=== PATIENT | male | born 1965 | race Caucasian/White ===

== ENCOUNTER → 2017-10-29 | Outpatient (CLI) | payer BC ==
--- NOTE | 2017-10-29 08:59 | MR ---
EXAMINATION TYPE: MR lumbar spine wo con DATE OF EXAM: 10/29/2017 COMPARISON: NONE HISTORY: Degenerative disc disease(M51.36 per order). Back pain for 7 years going into bilateral butt ocks. TECHNIQUE: Multiplanar, multisequence imaging of the lumbar spine is performed without IV contrast. FINDINGS: Sagittal images of the lumbar spine show vertebral body heights to appear satisfactory. The re is subtle grade 1 retrolisthesis of L4 on L5 and L5 on S1 seen best sagittal image 6. There is dis c desiccation L3-L4 through the L5-S1 levels. Mild disc space narrowing T12-L1 and L5-S1 levels are p resent. Small posterior disc herniations L4-L5 and L5-S1 levels are seen on sagittal images, annular tears are noted at these levels with increased posterior signal The conus medullaris is normal in po sition and signal ending superior L1 level. Modic type II degenerative change anterior inferior T12 e ndplate is present. Mild anterior spurring at this level is noted. Axial images at the T12-L1 level show mild broad disc bulge minimally effacing anterior thecal sac. B ilateral neural foramina are patent. Axial images at the L1-L2 and the L2-L3 levels are felt within normal limits. Axial images at the L3-L4 level shows mild to moderate broad disc bulge with right lateral disc protr usion component. There is mild effacement of the anterior thecal sac. There is mild to moderate right -sided anterior inferior neural foraminal narrowing with suspected encroachment along the extraforami nal right L3 nerve seen sagittal image 11 and axial image 13. Mild bilateral facet degenerative brasher es are present. Axial images at the L4-L5 level shows mild facet degenerative changes bilaterally. There is broad dis c bulge with left lateral disc protrusion component. There is effacement of the anterior thecal sac. Right-sided neural foramina is patent. Left side shows mild to moderate inferior anterior narrowing. Axial images at the L5-S1 level show broad disc bulge and mild facet degenerative changes bilaterally . There is mild left and mild to moderate right-sided inferior neural foraminal narrowing. Paraspinal muscle bulk is maintained. Gallbladder has distended margins without visualization of depe ndent gallstones. There is nonspecific 1.6 x 1.2 cm left adrenal mass axial image 30. IMPRESSION: Multilevel degenerative changes in the lumbar spine as detailed above most prominent in l ower lumbar levels. Nonspecific 1.6 cm left adrenal lesion may warrant further workup with adrenal pr otocol contrast-enhanced CT or MRI to rule out malignancy in etiology if there is no outside CT or MR I for comparison to document stability.
== END | disposition home or self-care (01) ==
LOC: RADMRIMAIN 06:57
PROVIDERS: ATTEND Family Medicine
DX: M47.816 Spondylosis without myelopathy or radiculopathy, lumbar region (principal)
CPT/HCPCS: 72148

== ENCOUNTER → 2019-06-02 | Day surgery (SDC) | payer BC ==
[2019-05-28 16:04] VITALS: BMI 28.8
[~2019-06-02] MED LIST: LACTATED RINGERS 1,000 ML IV ONE; LACTATED RINGERS 1,000 ML IV SCH; LIDOCAINE 1% (10MG/ML) FOR IV START INTRADERMA ONE; LIDOCAINE 1% INJ 10MG/ML (20 ML MDV) ONE; PROPOFOL 10 MG/ML 20 ML VIAL IV ONE
[2019-06-02 07:08] VITALS: RESP 18; TEMP 97.8
--- NOTE | 2019-06-02 07:58 | P.GSHP ---
History of Present Illness H&P Date: 06/02/19 Chief Complaint: Family history colonic Cancer, screening colonoscopy This a 53-year-old male presents today for colonoscopy. Patient has a strong family history colonic Cancer. Past Medical History Past Medical History: COPD, Osteoarthritis (OA) Additional Past Medical History / Comment(s): BACK & HIP PAIN, HX COLON POLYPS. History of Any Multi-Drug Resistant Organisms: None Reported Past Surgical History: No Surgical Hx Reported Additional Past Surgical History / Comment(s): COLONOSCOPY Past Anesthesia/Blood Transfusion Reactions: No Reported Reaction Past Psychological History: No Psychological Hx Reported Smoking Status: Heavy tobacco smoker Past Alcohol Use History: Daily Additional Past Alcohol Use History / Comment(s): SMOKES 1-2 PPD, STARTED SMOKING AGE 12. DRINKS 6-8 BEERS/DAY Past Drug Use History: None Reported Additional Drug Use History / Comment(s): CBD OIL - Past Family History Mother Family Medical History: Cancer Additional Family Medical History / Comment(s): LEUKEMIA, & BREAST CANCER Father Family Medical History: No Reported History Brother(s) Family Medical History: Cancer Additional Family Medical History / Comment(s): COLON CANCER Sister(s) Family Medical History: Cancer Additional Family Medical History / Comment(s): LEUKEMIA & LUNG CANCER Medications and Allergies Home Medications Medication Instructions Recorded Confirmed Type Cannabidiol (Cbd) Extract 1 dose PO DIRECTED PRN 05/28/19 05/28/19 History [Epidiolex] HYDROcodone/APAP 10-325MG [Piercy 1 tab PO Q4HR PRN 05/28/19 05/28/19 History 10-325] Inhaler (Unknown Name) 1 puff INHALATION DIRECTED PRN 05/28/19 History Simvastatin 40 mg PO DAILY 05/28/19 05/28/19 History Allergies Allergy/AdvReac Type Severity Reaction Status Date / Time No Known Allergies Allergy Verified 05/28/19 15:39 Surgical - Exam Vital Signs Temp Pulse Resp BP Pulse Ox 97.8 F 77 18 147/85 99 06/02/19 07:07 06/02/19 07:07 06/02/19 07:07 06/02/19 07:07 06/02/19 07:07 - General well developed, well nourished, no distress - Eyes PERRL - ENT normal pinna - Neck no masses - Respiratory normal expansion - Cardiovascular Rhythm: regular - Abdomen Abdomen: soft, non tender Assessment and Plan Plan: Family History of colonic cancer. We'll perform colonoscopy.
--- NOTE | 2019-06-02 08:20 | P.OP ---
Date of Procedure: 06/02/19 Preoperative Diagnosis: Family history of colonic Cancer Postoperative Diagnosis: Diverticulosis Procedure(s) Performed: Colonoscopy Anesthesia: MAC Surgeon: Robin Swift Pathology: none sent Condition: stable Disposition: PACU Description of Procedure: The patient's placed on the endoscopy table in the lateral position. He received IV sedation. Digital rectal exam was performed which revealed a few external hemorrhoids. The flexible colonoscope was then placed patient anus passed rotator entire colon. The ileocecal valve was visualized. The cecum appeared normal. In the ascending, transverse and descending colon there is moderate diverticular changes. The scope was then brought back the sigmoid colon and once again there was extensive diverticular changes seen. Scope was then brought back the rectum and this appeared normal. Scope was withdrawn patient.
[2019-06-02 08:52] VITALS: BP 143/72; PULSE 60
== END | disposition home or self-care (01) ==
LOC: ORWHC2ENDO 06:36
PROVIDERS: ATTEND Surgery
DX: Z12.11 Encounter for screening for malignant neoplasm of colon (principal); K57.30 Diverticulosis of large intestine without perforation or abscess without bleeding; K64.4 Residual hemorrhoidal skin tags; Z86.010 Personal history of colon polyps; J44.9 Chronic obstructive pulmonary disease, unspecified; M19.90 Unspecified osteoarthritis, unspecified site; E78.5 Hyperlipidemia, unspecified; F17.210 Nicotine dependence, cigarettes, uncomplicated; Z98.890 Other specified postprocedural states; Z79.899 Other long term (current) drug therapy; Z79.891 Long term (current) use of opiate analgesic; Z80.0 Family history of malignant neoplasm of digestive organs; Z80.3 Family history of malignant neoplasm of breast; Z80.6 Family history of leukemia; Z80.1 Family history of malignant neoplasm of trachea, bronchus and lung
CPT/HCPCS: J2001; J2704; G0105; 45378

== ENCOUNTER → 2022-02-22 | Outpatient (CLI) | payer BC ==
--- NOTE | 2022-02-22 11:24 | CTL ---
EXAMINATION TYPE: CT Low Dose Lung DATE OF EXAM ORDERED: 02/22/2022 HISTORY: . Lung cancer screening CT DLP: 121.[address] CTDI: 3.40 mGy Automated exposure control for dose reduction was used. SCREENING VISIT: COMPARISON: None TECHNIQUE: Low dose computed tomography scan was performed through the chest at 1 mm thick sections a nd reconstructed images in multiple planes at 1 mm and [address] DIAGNOSTIC QUALITY: Satisfactory FINDINGS: Mild hyperexpansion compatible COPD. There is a vague groundglass density in the right upper lobe snow ge 30 likely representing minimal atelectasis. No evidence of a focal pneumonia, pleural effusion or pneumothorax. No interstitial edema. Atherosclerotic change of the aorta but no evidence of aneurysm. Dense coronary artery calcification seen. Heart size normal. Structures of the upper abdomen demonstrate no acute process. Hypertrophic a nd degenerative changes of the spine. There is a single 2 mm nodule right lower lobe axial image 38. Within the right middle lobe axial image 27 there is a 3 mm nodule. Additional subpleural 1 to 2 mm nodules are seen which have a benign appearance. There is a 8 mm left adrenal nodule too small to characterize. IMPRESSION: 1. Sub-5 mm pulmonary nodules which have a benign appearance. 2. Mild COPD 3. Dense coronary artery calcification correlate clinically. 4. Indeterminate 8 mm left adrenal nodule too small to characterize. However, the nodule is stable da ting back to MRI of lumbar spine 2018 and therefore likely represents benign adenoma. CT LUNG RAD AND CT CHEST RECOMMENDATION: Lung-Rad 2 Benign Appearance or Behavior: Continue annual sc reening with LDCT in 12 months. S Modifier (other clinically significant findings): S
== END | disposition home or self-care (01) ==
LOC: RADCTMAIN 10:35
PROVIDERS: ATTEND Family Medicine
DX: Z12.2 Encounter for screening for malignant neoplasm of respiratory organs (principal); I25.10 Atherosclerotic heart disease of native coronary artery without angina pectoris; J44.9 Chronic obstructive pulmonary disease, unspecified; R91.8 Other nonspecific abnormal finding of lung field; Z87.891 Personal history of nicotine dependence
CPT/HCPCS: 71271

== ENCOUNTER → 2023-04-26 | Outpatient (CLI) | payer BC, MEDICARE ==
--- NOTE | 2023-04-26 14:21 | CTL ---
EXAMINATION TYPE: CT Low Dose Lung DATE OF EXAM: 04/26/2023 1:18 PM CLINICAL INDICATION:Male, 57 years old with history of Z87.891 PERSONAL HISTORY OF NICOTINE DEPENDENC E; Current every day smoker. 1 ppd x 40+ years , history of tobacco use. COMPARISON: 02/22/2022. TECHNIQUE: Multiple axial non-contrast scans were obtained from approximately the lung apices through the upper abdomen. Coronal and sagittal reformatted images were obtained. Low dose technique was uti lized. CT DLP: 135.6 mGycm, Automated exposure control for dose reduction was used. CT Contrast: Contrast used: None Oral contrast used: None FINDINGS: ======== Lack of intravenous contrast and low dose technique limits the evaluation of the vascular and soft ti ssue structures. LUNGS: No evidence of pulmonary fibrosis. No evidence of focal consolidation, pneumothorax or pleural effusion. Mild centrilobular emphysema changes seen throughout the lungs Nodules: RUL: None. RML: None. RLL: Intrafissural lymph node measuring 2 mm series 9 image 12. KATIE: None. LLL: None. AIRWAY: Patent and unremarkable. HEART: Size within normal limits. Atherosclerosis of the coronary arteries. MEDIASTINUM: No gross evidence of adenopathy. VASCULATURE: No aortic aneurysm. MUSCULOSKELETAL: Mild disc degeneration changes are present throughout the thoracolumbar spine. There are stimulator device in the posterior thecal sac. SOFT TISSUES/LYMPH NODES: Unremarkable. LOWER NECK: No significant findings. UPPER ABDOMEN: Scattered colonic diverticula. IMPRESSION: 1. No clinically significant pulmonary nodules. 2. Mild emphysema changes. CT LUNG RAD AND CT CHEST RECOMMENDATION: Lung-Rad 2 Benign Appearance or Behavior: Continue annual sc reening with LDCT in 12 months. S Modifier (other clinically significant findings): None Recommend smoking cessation (if current smoker), or continuation of smoking cessation (if prior smoke r). Annual screening for lung cancer with low-dose computed tomography is recommended in adults ages 55 to 77 years who have a 30 pack-year smoking history and currently smoke or have quit within the pa st 15 years. Screening should be discontinued once a person has not smoked for 15 years or develops a health problem that substantially limits life expectancy or the ability or willingness to have curat hao lung surgery. Lung rads 2021 [email or web address]
== END | disposition home or self-care (01) ==
LOC: RADCTMAIN 12:44
PROVIDERS: ATTEND Family Medicine
DX: Z12.2 Encounter for screening for malignant neoplasm of respiratory organs (principal); J43.2 Centrilobular emphysema; F17.210 Nicotine dependence, cigarettes, uncomplicated
CPT/HCPCS: 71271